=== PATIENT | female | born 1990 | race Caucasian/White ===

== ENCOUNTER 2024-04-04 13:01 | Emergency (ER) | payer OTHER ==
[2024-04-04 13:59] LABS: Absolute Basophils 0.1 K/uL (0-0.5); Absolute Eosinophils 0.1 K/uL (0-0.5); Absolute Lymphocytes (CBC) 1.4 K/uL (0.7-4.9); Absolute Monocytes 0.6 K/uL (0.1-1.3); Absolute Neutrophil 3.5 K/uL (1.8-8.0); Basophils % 1.1 % (0-1.3); Hemoglobin 12.3 g/dL (12.0-15.0); MCH 29.3 pg (27.0-35.0); MCHC 33.2 g/dL (32.0-36.0); MCV 88.2 fL (80-100); MPV 9.2 fL (7.6-11.3); Monocytes % 10.9 % (3.3-12.3); Platelets 234 thou/uL (152-406); RBC Red Blood Cell Count 4.19 M/uL (3.86-4.86); Red Cell Distribution Width 12.4 % (12.1-15.2)
[2024-04-04 14:09] LABS: Specific Gravity 1.005 (1.005-1.030); Sqamous Epithelial None Seen /HPF (None Seen); Urine Bacteria None Seen /HPF (<20); Urine Bilirubin NEGATIVE (Negative); Urine Blood 2+ (Negative); Urine Clarity Clear (Clear); Urine Color Colorless (Yellow); Urine Culture Reflex Order NOT NEEDED; Urine Glucose NEGATIVE (Negative); Urine Ketones NEGATIVE (Negative); Urine Microscopic Reflex YN ORDER UMIC; Urine Nitrite NEGATIVE (Negative); Urine Protein NEGATIVE (Negative); Urine RBC <5 /HPF (None Seen); Urine Urobilinogen Normal (Normal); Urine WBC None Seen /HPF (<5); Urine pH 6.5 (5.0-7.0)
[2024-04-04 14:16] LABS: Albumin 3.8 g/dL (3.4-5.0); Albumin/Globulin Ratio 1.1 (1.1-1.8); Anion Gap 1.2 mEq/L (5.0-15.0); Bilirubin Total 0.5 mg/dL (0.2-1.0); Globulin 3.4 g/dL (2.3-3.5); Potassium 4.2 mEq/L (3.5-5.1); Protein, Total 7.2 g/dL (6.4-8.2)
--- NOTE | 2024-04-04 14:26 | RAD REPORT ---
EXAM DESCRIPTION: CTAngio Aorta For Dissection - 04/04/2024 2:08 pm CLINICAL HISTORY: ABD PAIN COMPARISON: No comparisons TECHNIQUE: CTA of the chest, abdomen, and pelvis was performed. All CT scans are performed using dose optimization technique as appropriate and may include automated exposure control or mA/KV adjustment according to patient size. FINDINGS: Thorax: Chest Wall: No abnormal mass. Bilateral breast prostheses . Lungs: No acute abnormality. Pleura: No effusions or pneumothorax. Gely/Mediastinum: No lymphadenopathy. Aorta/Pulmonary Arteries: Unremarkable Heart: Normal size. Abdomen/Pelvis: Liver: No acute abnormality or suspicious lesions. Biliary: No biliary ductal dilatation. Stomach: No significant focal abnormality. Duodenum: No significant focal abnormality. Pancreas: No significant abnormality. Spleen: No significant abnormality. Adrenal: No suspicious lesions. Kidney/ureter: No hydronephrosis. No renal calculi. Retroperitoneum: No retroperitoneal adenopathy. Vascular: No aneurysm. Bowel: No significant focal abnormality. Peritoneum: No ascites or free air. Bladder: Grossly unremarkable. Reproductive: No adnexal masses. Bones: No acute fracture. Other: n/a IMPRESSION: No acute findings within the chest, abdomen, or pelvis. No thoracic aortic dissection, a neurysm, or pulmonary embolus identified .
--- NOTE | 2024-04-04 15:50 | EDPHYS ---
Physician Documentation [facility] Name: Blane Hernandez Age: 34 yrs Sex: Female : 1990 Arrival Date: 04/04/2024 Time: 13:01 Bed 19 Private MD: ED Physician Valeriano Salas HPI: 04/04 13:46 This 34 yrs old Female presents to ER via Ambulatory with complaints of Vaginal sb4 Bleeding, Abdominal pain. 13:46 Patient states that she had a laparoscopic hysterectomy done by Dr. Yap about 1 sb4 month ago for treatment of endometriosis. She states that since then, she has had intermittent pain in her left upper quadrant, under one of her laparoscopic incision sites. Additionally, she has had intermittent vaginal bleeding, most recently restarted last night with bright red blood. She has had a follow up appointment with Dr. Yap who obtained a chest xray that was negative and additionally scheduled a CT abdomen with contrast later this week. Historical: - Allergies: 13:25 PENICILLINS; db - Home Meds: 13:25 levothyroxine oral [Active]; db - PMHx: 13:25 Hypothyroidism; db - PSHx: 13:25 HYSTERECTOMY; db - Immunization history:: Adult Immunizations unknown. - Infectious Disease History:: Denies. - Social history:: Smoking status: Patient denies any tobacco usage or history of. ROS: 13:46 Positive for vaginal bleeding, sb4 13:46 Constitutional: Negative for fever, chills, and weight loss, 13:46 Abdomen/GI: Positive for abdominal pain, 13:46 All other systems are negative, Exam: 13:46 Constitutional: This is a well developed, well nourished patient who is awake, alert, sb4 and in no acute distress. Head/Face: Normocephalic, atraumatic. Eyes: Extra-ocular motions intact. Periorbital areas with no swelling, redness, or edema. ENT: Mucous membranes moist. Cardiovascular: Regular rate and rhythm with a normal S1 and S2. Respiratory: Lungs have equal breath sounds bilaterally, clear to auscultation and percussion. No rales, rhonchi or wheezes noted. No increased work of breathing, no retractions or nasal flaring. Skin: Warm, dry with normal turgor. Normal color with no rashes, no lesions, and no evidence of cellulitis. 13:46 Abdomen/GI: Inspection: scar(s), are noted in the left upper quadrant, right lower quadrant and left lower quadrant, laparoscopic incision sites, well healed, Bowel sounds: normal, Palpation: soft, moderate abdominal tenderness, in the left upper quadrant, Vital Signs: 13:22 BP 125 / 90; Pulse 83; Resp 16; Temp 98.7; Pulse Ox 99% on R/A; Weight 68.04 kg; Height db 5 ft. 8 in. ; Pain 5/10; 14:34 BP 127 / 84; Pulse 80; Resp 17; Pulse Ox 99% on R/A; rs5 15:50 BP 134 / 79; Pulse 77; Resp 17; Pulse Ox 98% on R/A; rs5 13:22 Body Mass Index 22.81 (68.04 kg, 172.72 cm) db 13:22 Pain Scale: Adult db MDM: 13:11 Patient medically screened. 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 I additionally sb4 texted her from my personal cell phone, awaiting call back. Later, I called Dr. Yap's after hour office, no answer, left a voicemail. 15:48 Data reviewed: vital signs, nurses notes, lab test result(s), radiologic studies, I sb4 have discussed the patient's presentation/case with the attending Emergency Department Physician; and as a result, I will discharge patient. Management of patient was discussed with the following: Quick Service Technician: Dr. Yap, recommends continued pelvic rest. Counseling: I had a detailed discussion with the patient and/or guardian regarding the historical points, exam findings, and any diagnostic results supporting the discharge/admit diagnosis, lab results, radiology results, to return to the emergency department if symptoms worsen or persist or if there are any questions or concerns that arise at home. 04/04 13:42 Order name: CBC with Diff; Complete Time: 14:25 sb4 04/04 13:42 Order name: CMP; Complete Time: 14:25 sb4 04/04 13:42 Order name: Lipase; Complete Time: 14:25 sb4 04/04 13:42 Order name: Urinalysis w/ reflexes; Complete Time: 14:11 sb4 04/04 13:52 Order name: Angio Aorta For Dissection; Complete Time: 14:27 EDMS 04/04 13:42 Order name: IV Saline Lock; Complete Time: 13:55 sb4 04/04 13:42 Order name: Labs collected and sent; Complete Time: 13:55 sb4 Administered Medications: No medications were administered Disposition Summary: 04/04/24 15:49 Discharge Ordered Notes: Location: Home sb4 Problem: new sb4 Symptoms: are unchanged sb4 Condition: Stable sb4 Diagnosis - laproscopic incision site pain sb4 - Vaginal bleeding s/p hysterectomy sb4 Followup: sb4 - With: Emergency Department - When: As needed - Reason: Worsening of condition Discharge Instructions: - Discharge Summary Sheet sb4 Forms: - Patient Portal Instructions sb4 - Leadership Thank You Letter sb4 Prescriptions: - Prednisone 20 mg Oral Tablet - take 2 tablets ORAL route once daily for 5 days; 10 tablet; Refills: 0, Product sb4 Selection Permitted Signatures: Dispatcher [employer] Vera Chapman RN RN Vika Painting PA-C PAKendy sb4 Corrections: (The following items were deleted from the chart) 13:52 13:43 Abdomen Angio+CT.RAD.BRZ ordered. EDMS EDMS 13:52 13:43 Pelvis Angio+CT.RAD.BRZ ordered. EDMS EDMS 13:52 13:43 Chest Angio+CT.RAD.BRZ ordered. EDMS EDMS
--- NOTE | 2024-04-04 15:50 | ER ---
Nurse's Notes [facility] Name: Blane Hernandez Age: 34 yrs Sex: Female : 1990 Arrival Date: 04/04/2024 Time: 13:01 Bed 19 Private MD: Diagnosis: laproscopic incision site pain;Vaginal bleeding s/p hysterectomy Presentation: 04/04 13:22 Chief complaint: Patient states: STATES HAS LEFT UPPER ABD PAIN ABOVE INCISION RANDALL AND db VAGINAL BLEEDING AFTER HAVING A HYSTERECTOMY ON January. STATES BLEEDING STOPPED AND THEN BLEEDING STARTED BACK UP LAST NIGHT WITH INCREASED UPPER LEFT ABD PAIN. Coronavirus screen: Client denies travel out of the [place] in the last 14 days. At this time, the client does not indicate any symptoms associated with coronavirus-19. Ebola Screen: Patient negative for fever greater than or equal to 101.5 degrees Fahrenheit, and additional compatible Ebola Virus Disease symptoms Patient denies exposure to infectious person. Patient denies travel to an Ebola-affected area in the 21 days before illness onset. No symptoms or risks identified at this time. Initial Sepsis Screen: Does the patient meet any 2 criteria? No. Patient's initial sepsis screen is negative. Does the patient have a suspected source of infection? No. Patient's initial sepsis screen is negative. Risk Assessment: Do you want to hurt yourself or someone else? Patient reports no desire to harm self or others. Onset of symptoms was April 03, 2024. 13:22 Method Of Arrival: Ambulatory db 13:22 Acuity: ELLY 3 db Triage Assessment: 13:25 General: Appears in no apparent distress. comfortable, Behavior is calm, cooperative. db Pain: Complains of pain in abdomen and pelvis. Neuro: Level of Consciousness is awake, alert, obeys commands, Oriented to person, place, time, situation. Respiratory: Airway is patent Respiratory effort is even, unlabored, Respiratory pattern is regular, symmetrical. GI: Abdomen is flat, non-distended, Reports upper abdominal pain. : Reports vaginal bleeding that is moderate flow. Historical: - Allergies: 13:25 PENICILLINS; db - Home Meds: 13:25 levothyroxine oral [Active]; db - PMHx: 13:25 Hypothyroidism; db - PSHx: 13:25 HYSTERECTOMY; db - Immunization history:: Adult Immunizations unknown. - Infectious Disease History:: Denies. - Social history:: Smoking status: Patient denies any tobacco usage or history of. Screenin:30 [facility] ED Fall Risk Assessment (Adult) History of falling in the last 3 months, rs5 including since admission No falls in past 3 months (0 pts) Confusion or Disorientation No (0 pts) Intoxicated or Sedated No (0 pts) Impaired Gait No (0 pts) Mobility Assist Device Used No (0 pt) Altered Elimination No (0 pt) Score/Fall Risk Level 0 - 2 = Low Risk Oriented to surroundings, Maintained a safe environment. 13:30 Abuse screen: Denies threats or abuse. Nutritional screening: No deficits noted. rs5 Tuberculosis screening: No symptoms or risk factors identified. Assessment: 13:30 General: Appears in no apparent distress. uncomfortable, Behavior is calm, cooperative. rs5 Pain: Complains of pain in abdomen Pain currently is 4 out of 10 on a pain scale. Quality of pain is described as aching, Is continuous. Neuro: Level of Consciousness is awake, alert, obeys commands, Oriented to person, place, time, situation. Cardiovascular: Patient's skin is warm and dry. Respiratory: Airway is patent Respiratory effort is even, unlabored, Respiratory pattern is regular, symmetrical. GI: Abdomen is round non-distended, 2 small surgical incision noted to left upper abdomen, site clean, no redness or signs of infection noted. : Reports vaginal bleeding that is. EENT: No signs and/or symptoms were reported regarding the EENT system. Derm: Skin is intact, Skin is pink, warm \T\ dry. Musculoskeletal: Range of motion: intact in all extremities. 14:34 Reassessment: Patient and/or family updated on plan of care and expected duration. Pain rs5 level reassessed. Patient is alert, oriented x 3, equal unlabored respirations, skin warm/dry/pink. Patient denies pain at this time. Patient states feeling better. Patient states symptoms have improved. 15:24 Reassessment: Patient and/or family updated on plan of care and expected duration. Pain rs5 level reassessed. Patient is alert, oriented x 3, equal unlabored respirations, skin warm/dry/pink. Patient denies pain at this time. Patient states feeling better. Vital Signs: 13:22 BP 125 / 90; Pulse 83; Resp 16; Temp 98.7; Pulse Ox 99% on R/A; Weight 68.04 kg; Height db 5 ft. 8 in. ; Pain 5/10; 14:34 BP 127 / 84; Pulse 80; Resp 17; Pulse Ox 99% on R/A; rs5 15:50 BP 134 / 79; Pulse 77; Resp 17; Pulse Ox 98% on R/A; rs5 13:22 Body Mass Index 22.81 (68.04 kg, 172.72 cm) db 13:22 Pain Scale: Adult db ED Course: 13:04 Patient arrived in ED. ra3 13:06 Vika Shetty PA-C is PHCP. sb4 13:06 Naveed Bray MD is Attending Physician. sb4 13:25 Triage completed. db 13:28 Arm band placed on Patient placed in an exam room. db 13:35 Patient has correct armband on for positive identification. Placed in gown. Bed in low rs5 position. Call light in reach. Side rails up X2. 13:35 No provider procedures requiring assistance completed. rs5 13:40 Marcial Ward, RN is Primary Nurse. rs5 14:10 Angio Aorta For Dissection In Process Unspecified. EDMS 14:37 Valeriano Salas MD is Attending Physician. sb4 15:57 IV discontinued, intact, bleeding controlled, No redness/swelling at site. Pressure rs5 dressing applied. Administered Medications: No medications were administered Medication: 14:34 VIS not applicable for this client. rs5 Outcome: 15:49 Discharge ordered by MD. sb4 15:57 Discharged to home ambulatory, rs5 15:57 Condition: stable rs5 15:57 Discharge instructions given to patient, family, Instructed on discharge instructions, follow up and referral plans. medication usage, Demonstrated understanding of instructions, follow-up care, medications, Prescriptions given X 1, 15:59 Patient left the ED. rs5 Signatures: Dispatcher [employer] EDMS Vera Bolton RN RN Vika Painting PA-C PA-C sb4 Marcial Ward, RN RN rs5 Nilda Jean ra3 Corrections: (The following items were deleted from the chart) 16:49 15:25 BP 134 / 79; Pulse 77bpm; Resp 17bpm; Pulse Ox 98% RA; rs5 rs5
[2024-04-04 16:04] VITALS: TEMP 98.7; O2SAT 99
[2024-04-04 16:05] VITALS: BP 127/84
== END 2024-04-04 15:59 | disposition home or self-care (01) ==
LOC: ER 13:01
DX: G89.18 Other acute postprocedural pain (principal); N99.820 Postprocedural hemorrhage of a genitourinary system organ or structure following a genitourinary system procedure; Z90.710 Acquired absence of both cervix and uterus
CPT/HCPCS: 99283

== ENCOUNTER 2024-04-10 11:35 | Day surgery (SDC) | payer OTHER ==
[2024-04-10] MEDS ORDERED: Levofloxacin 750mg IV 750 MG/150 ML BAG IV ONE (12:06)
--- NOTE | 2024-04-10 12:09 | ER ---
Nurse's Notes [facility] Name: Blane Hernandez Age: 34 yrs Sex: Female : 1990 Arrival Date: 04/10/2024 Time: 11:35 Bed 8 Private MD: Diagnosis: Abnormal uterine and vaginal bleeding, unspecified Presentation: 04/10 11:42 Chief complaint: Patient states: had a hysterectomy six weeks ago and has had heavy tm6 bleeding and clotting ever since. My surgeon is meeting me up here. This is my third trip to the ER for this problem. Ebola Screen: Patient negative for fever greater than or equal to 101.5 degrees Fahrenheit, and additional compatible Ebola Virus Disease symptoms Patient denies exposure to infectious person. Patient denies travel to an Ebola-affected area in the 21 days before illness onset. No symptoms or risks identified at this time. Initial Sepsis Screen: Does the patient meet any 2 criteria? No. Patient's initial sepsis screen is negative. Does the patient have a suspected source of infection? No. Patient's initial sepsis screen is negative. Risk Assessment: Do you want to hurt yourself or someone else? Patient reports no desire to harm self or others. Onset of symptoms was February 28, 2024. 11:42 Method Of Arrival: Ambulatory tm6 11:42 Acuity: ELLY 3 tm6 12:56 Coronavirus screen: Client denies travel out of the [place] in the last 14 days. At this db time, the client does not indicate any symptoms associated with coronavirus-19. Triage Assessment: 11:42 General: Appears in no apparent distress. Behavior is calm, cooperative. Pain: Denies tm6 pain. EENT: No signs and/or symptoms were reported regarding the EENT system. Neuro: Level of Consciousness is awake, alert, obeys commands, Oriented to person, place, time, situation. Cardiovascular: Patient's skin is warm and dry. Respiratory: Airway is patent Respiratory effort is even, unlabored, Respiratory pattern is regular, symmetrical. GI: No signs and/or symptoms were reported involving the gastrointestinal system. Abdomen is flat, non-distended. : Reports vaginal bleeding that is bright red, with clots, heavy flow since 6 weeks ago. Derm: No signs and/or symptoms reported regarding the dermatologic system. Musculoskeletal: No signs and/or symptoms reported regarding the musculoskeletal system. 11:44 Pain: Complains of pain in suprapubic area Pain currently is 3 out of 10 on a pain tm6 scale. Quality of pain is described as crampy. 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 - Infectious Disease History:: Denies. - Social history:: Smoking status: Patient denies any tobacco usage or history of. Patient/guardian denies using alcohol. Screenin:52 [facility] ED Fall Risk Assessment (Adult) History of falling in the last 3 months, ph including since admission No falls in past 3 months (0 pts) Confusion or Disorientation No (0 pts) Intoxicated or Sedated No (0 pts) Impaired Gait No (0 pts) Mobility Assist Device Used No (0 pt) Altered Elimination No (0 pt) Score/Fall Risk Level 0 - 2 = Low Risk Oriented to surroundings, Maintained a safe environment, Hourly rounding (assess needs \T\ fall precautionary measures) done. Abuse screen: Denies threats or abuse. Denies injuries from another. Nutritional screening: No deficits noted. Tuberculosis screening: No symptoms or risk factors identified. Assessment: 12:08 Reassessment: Patient appears in no apparent distress at this time. Patient and/or db family updated on plan of care and expected duration. Pain level reassessed. Patient is alert, oriented x 3, equal unlabored respirations, skin warm/dry/pink. General: Appears in no apparent distress. comfortable, Behavior is calm, cooperative. Respiratory: Airway is patent Respiratory effort is even, unlabored, Respiratory pattern is regular, symmetrical. GI: Abdomen is flat, non-distended. 12:55 Reassessment: Patient appears in no apparent distress at this time. Patient and/or db family updated on plan of care and expected duration. Pain level reassessed. Patient is alert, oriented x 3, equal unlabored respirations, skin warm/dry/pink. PT PICKED UP BY RN FOR OR. FAMILY AND BELONGINGS WENT WITH PT. Neuro: Level of Consciousness is awake, alert, obeys commands, Oriented to person, place, time, situation. : Reports vaginal bleeding that is. Vital Signs: 11:44 BP 125 / 85; Pulse 82; Pulse Ox 100% on R/A; Weight 68.04 kg; Height 5 ft. 8 in. ; Pain tm6 3/10; 11:47 Temp 98.4(O); tm6 12:30 BP 114 / 83; Pulse 58; Resp 18; Pulse Ox 100% ; db 11:44 Body Mass Index 22.81 (68.04 kg, 172.72 cm) tm6 11:44 Pain Scale: Adult tm6 ED Course: 11:37 Patient arrived in ED. ra3 11:38 Nury Naidu FNP-C [facility]. kb 11:38 Naveed Bray MD is Attending Physician. kb 11:43 Triage completed. tm6 11:45 Arm band placed on right wrist. tm6 11:53 Patient has correct armband on for positive identification. Bed in low position. Call ph light in reach. Side rails up X 1. Pulse ox on. NIBP on. Door closed. Noise minimized. 11:55 Tamiko Martínez, RN is Primary Nurse. ph 12:04 No provider procedures requiring assistance completed. Initial lab(s) drawn, by me, db sent to lab. Inserted saline lock: 20 gauge in right antecubital area, using aseptic technique. Blood collected. Flushed with 10 mL NS. 12:09 Yasmin Yap MD is Hospitalizing Provider. kb 12:55 Provided Education on: TO OR. db 12:55 Patient admitted, IV remains in place. db Administered Medications: 12:15 Drug: levofloxacin IVPB 750 mg 150 ml IVPB once over 90 mins Volume: 150 ml; Route: db IVPB; Infused Over: 90 mins; Site: right antecubital; 12:56 Follow up: IV Status: Infusion continued upon admission db Medication: 11:53 VIS not applicable for this client. ph Outcome: 12:09 Decision to Hospitalize by Provider. kb 12:55 Admitted to OR accompanied by nurse, via wheelchair, with chart, Report called to db BEDSIDE REPORT GIVEN 12:55 Condition: stable 12:55 Instructed on the need for admit, 12:56 Patient left the ED. db Signatures: Nury Naidu FNP-C HYGIENE TEACHER-Ckb Tamiko Martínez, RN RN ph Vera Bolton, RN RN db Anusha Wang RN RN tm6 Nilda Jean
--- NOTE | 2024-04-10 12:09 | EDPHYS ---
Physician Documentation [facility] Name: Blane Hernandez Age: 34 yrs Sex: Female : 1990 Arrival Date: 04/10/2024 Time: 11:35 Bed 8 Private MD: ED Physician Naveed Bray HPI: 04/10 12:09 This 34 yrs old Female presents to ER via Ambulatory with complaints of Post Sx:bleed. kb 12:09 Pt is a 34 year old female who presents for vaginal bleeding that has been ongoing kb since hysterectomy 6 weeks ago. States she has had multiple exams, been here 3 times but no cause has been found. Pt was told to come to the ER today so Dr Yap could take her back to the OR for further evaluation. . 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 - Infectious Disease History:: Denies. - Social history:: Smoking status: Patient denies any tobacco usage or history of. Patient/guardian denies using alcohol. ROS: 12:02 Constitutional: As per HPI kb Exam: 12:02 Constitutional: This is a well developed, well nourished patient who is awake, alert, kb and in no acute distress. Head/Face: Normocephalic, atraumatic. ENT: Moist Mucous membranes Cardiovascular: Regular rate Respiratory: Respirations even and unlabored. No increased work of breathing. Talking in full sentences Abdomen/GI: Soft, non-tender. No distention Skin: Warm, dry with normal turgor. Normal color. MS/ Extremity: Pulses equal, no cyanosis. Neurovascular intact. Full, normal range of motion. Neuro: Awake and alert, GCS 15, oriented to person, place, time, and situation. Moves all extremities. Normal gait. Vital Signs: 11:44 BP 125 / 85; Pulse 82; Pulse Ox 100% on R/A; Weight 68.04 kg; Height 5 ft. 8 in. ; Pain tm6 3/10; 11:47 Temp 98.4(O); tm6 12:30 BP 114 / 83; Pulse 58; Resp 18; Pulse Ox 100% ; db 11:44 Body Mass Index 22.81 (68.04 kg, 172.72 cm) tm6 11:44 Pain Scale: Adult tm6 MDM: 11:38 Patient medically screened. kb 12:08 Differential diagnosis: post op bleeding, infection. Data reviewed: vital signs, nurses kb notes. Consideration of Admission/Observation Patient was admitted/placed on observation. Escalation of care including admission/observation considered. Management of patient was discussed with the following: Md Psychiatry: Dr Yap will take pt to OR shortly. Historians other than the Patient: Spouse/Significant Other: spouse. Counseling: I had a detailed discussion with the patient and/or guardian regarding the historical points, exam findings, and any diagnostic results supporting the discharge/admit diagnosis, the need for further work-up and treatment in the hospital. 04/10 11:55 Order name: CBC with Diff; Complete Time: 12:17 kb 04/10 11:55 Order name: Basic Metabolic Panel; Complete Time: 12:30 kb 04/10 11:55 Order name: IV Start; Complete Time: 12:07 kb Administered Medications: 12:15 Drug: levofloxacin IVPB 750 mg 150 ml IVPB once over 90 mins Volume: 150 ml; Route: db IVPB; Infused Over: 90 mins; Site: right antecubital; 12:56 Follow up: IV Status: Infusion continued upon admission db Disposition: 13:41 Co-signature as Attending Physician, Naveed Bray MD I reviewed the patient's care rt provided by the Advanced Practice Provider and agree with the diagnosis and treatment plan. Disposition Summary: 04/10/24 12:09 Hospitalization Ordered Notes: Hospitalization Status: Observation kb Provider: Yasmin Yap Location: Operating Room kb Condition: Stable kb Problem: new kb Symptoms: are unchanged kb Bed/Room Type: Standard kb Room Assignment: kb Diagnosis - Abnormal uterine and vaginal bleeding, unspecified kb Forms: - Medication Reconciliation Form kb - SBAR form kb - Leadership Thank You Letter kb Signatures: Dispatcher [employer] Nury Gil FNP-C FNP-Vera Newby RN RN Naveed Cruz MD MD rt Kathleen, Tawney, RN RN tm6
[2024-04-10 12:12] LABS: Absolute Eosinophils 0.1 K/uL (0-0.5); Absolute Lymphocytes (CBC) 1.4 K/uL (0.7-4.9); Absolute Monocytes 0.5 K/uL (0.1-1.3); Absolute Neutrophil 2.8 K/uL (1.8-8.0); Basophils % 0.9 % (0-1.3); Eosinophils % 1.9 % (0-4.4); Hematocrit 35.5 % (36.0-45.0); Hemoglobin 12.1 g/dL (12.0-15.0); Lymphocytes % 29.2 % (15.3-44.8); MCH 29.9 pg (27.0-35.0); MPV 9.6 fL (7.6-11.3); Monocytes % 10.5 % (3.3-12.3); Neutrophils % 57.5 % (41.7-73.7); Platelets 230 thou/uL (152-406); RBC Red Blood Cell Count 4.04 M/uL (3.86-4.86); Red Cell Distribution Width 12.5 % (12.1-15.2)
[2024-04-10 12:25] LABS: Anion Gap 9.5 mEq/L (5.0-15.0); Potassium 4.5 mEq/L (3.5-5.1)
[2024-04-10] MEDS ORDERED: LIDOCAINE HCL/EPINEPHRINE 20 ML MDV ONE (12:42)
[2024-04-10] MEDS ORDERED: Ringers Lactate 1,000 ML IV ONE (12:57)
[2024-04-10] MEDS ORDERED: propofoL 200 MG/20 ML VIAL IV ONE (13:14)
[2024-04-10] MEDS ORDERED: MIDAZOLAM HCL 2 MG/2 ML INJ ONE (13:15)
[2024-04-10] MEDS ORDERED: FENTANYL CITR 100 MCG/2 ML ONE (13:15)
[2024-04-10] MEDS ORDERED: SILVER NITRATE 1 APPL TOP ONE (13:18)
[2024-04-10] MEDS ORDERED: KETOROLAC 30 MG/ML INJ ONE (14:36)
[2024-04-10] MEDS ORDERED: MEPERIDINE HCL 25 MG/ML SYR ONE (14:45)
[2024-04-10 15:24] VITALS: O2SAT 98
[2024-04-10 15:53] VITALS: BP 112/74; TEMP 97.8
--- NOTE | 2024-04-10 18:18 | OP ---
Date of Procedure: 04/10/2024 Surgeon: Yasmin Yap MD Machine Rough Rounder: No stonecutter assistant. Preoperative Diagnosis: Vaginal cuff bleeding and patient is postop 5 weeks from a robotic hysterect kory. Postoperative Diagnosis: Vaginal cuff bleeding and patient is postop 5 weeks from a robotic hysterec maegan plus superficial cuff separation. Procedures Performed: Exam under anesthesia, vaginal cuff revision, and re-suturing. Anesthesia: General endotracheal. Specimens: No specimens. Complications: No complications. Implants: No implants. Estimated Blood Loss: 25. Findings: Superficial separation of the cuff with deeper fascia that is intact and the separation wa s encompassing the entire vaginal cuff. Fluid: 1000. Urine Catheterized: 400. Condition: Stable. Indications: The patient is a 34-year-old, 5 week postop from a robotic total laparoscopic hysterect kory, bilateral salpingectomy, started reporting vaginal bleeding after 3 weeks postop, which was ligh t on examination in the office. There was a slight separation superficially on the left end of the c uff. She was given strict instructions for pelvic rest as the patient had increased her activity sli ghtly, although she was mostly compliant by history. She was re-examined 1 week later and no significant change. However, there were episodes of signific ant bleeding and clots that the patient has been reporting and she has been conservatively observed t o see if this resolved spontaneously, but in the last 36 hours, there were episodes of spotting, but there were large clots and intermittently episodes of complete resolution of bleeding. So there was suspicion of vaginal cuff separation or a bleeder at the granulation tissue was suspected and so she was brought into the ER and consented in the preoperative area, taken back to the OR for the revision . Description Of Procedure: After the patient was taken back to the OR and she was placed in supine fa shion on the operating table, general anesthesia was given. She received a dose of Levaquin in the E R. She was then placed in a dorsal lithotomy position. Lower abdomen, medial thighs, vulva, vagina, and perineum were prepped and draped in a sterile fashion. Speculum was placed to expose the vaginal cu ff, anteriorly a Ryan, and a Vang in the posterior aspect. It was clear that the superficial layer was . The deeper tissues on examination with the ring forceps had no evidence of fascial d ehiscence. The bleeding was mostly coming from the right half of the incision. The angles were inta ct. After full assessment was performed, plan was to re-suture the superficial vaginal epithelium and hea lthy tissue. There was no evidence of any edema or swelling or infection, and mostly improperly heal ed edges that were rolled in. So, slight revision was performed by abrading the edges gently with th e tip of a hemostat as well as pickups. Then irrigation and suction was performed. Then, I went on to place a [id number] buried 2-0 PDS suture in the center. This was used as an anchor for retra ction and 4 sutures were placed with 0 Vicryl on a CT1 needle starting at the immediately lateral pos ition from the midline and then the angles, sutures were placed. Once all 4 sutures were placed, the y were all tied down. The reinforcing suture was placed in the midline with the 0 Vicryl and tied do wn. The tails were trimmed. There was excellent apposition, complete resolution of bleeding, and no tension. Wound was again irrigated and suctioned. The patient was catheterized with a red rubber c atheter and 400 mL was drained. The counts were then done and were correct. She was recovered from anesthesia and taken to PACU in stable condition. She got 30 mg of Toradol intraop and she will be d ischarged home today after she is able to tolerate diet, and ambulate and her pain is under good cont rol. She will continue Levaquin 500 daily for 14 days and we will make sure that we see her back in 2 weeks in the office. Call with any problems in the meanwhile and full hysterectomy instructions to be followed until recovery 2-4 weeks later. EMMA/SUZI Voice ID: [id number] Report ID: [id number]
--- NOTE | 2024-04-10 18:32 | HP ---
Date of Admission: 04/10/2024 This patient came into the ER. The patient is a 34-year-old, 5 week postop from a robotic total lapa roscopic hysterectomy. Chief Complaint: Vaginal bleeding, intermittent with heavy clots for the past 2 weeks, worse in the last 1 week and the bleeding that is heavy, less than 24 hours with resolution followed by ongoing sp otting, and mostly denies any significant pelvic pain, lower urinary tract symptoms, or bowel symptom s. Left upper quadrant pain has been complained intermittently. Denies any shortness of breath. Oc casional palpitations in the past and was documented to have a heart rate that is significantly highe r than 130. No chest pain or orthopnea. No nausea, vomiting, diarrhea, fever, or chills. Denies an y abnormal discharge with sexual intercourse. The patient is on bedrest for the last week and has be en compliant mostly. Review of Systems: As above included with the HPI. Past Medical History: Hypothyroidism and anxiety. Medications: She is on levothyroxine and some anxiety medication. Past Surgical History: Robotic total laparoscopic hysterectomy, bilateral salpingectomy 5 weeks ago. Social History: No tobacco, alcohol, or drugs. Allergies: TO PENICILLIN. Physical Examination: Vital Signs: 98.4, 82, 125/85, and weight of 150, 100% sats on room air. General: In no acute distress, significantly anxious. No pallor. Head and Neck: Normal. Chest: Unremarkable. Heart: Regular in rate and rhythm. No murmurs. Lungs: Clear and equal bilateral breath sounds. Abdomen: Soft, nondistended, minimally tender in the left upper quadrant abdominal wall. No rebound or mass or hernia. External Genitalia: Unremarkable. No pelvic exam internally was performed. The plan was to perform an exam under anesthesia. Rectal: Not done. Extremities: No edema or calf tenderness. Laboratory Data: Her white count was 4.8 with no left shift, and hemoglobin and hematocrit 12 and 35 , platelet count of 230. BMP was normal. The CT angiogram of the chest was negative for dissection and PE. The lower abdomen was visualized. There was no evidence of any mass or collection at the le rg of the vaginal cuff or any other hernia or free air. Chest x-ray, PA and lateral, was performed prior to that was negative. Conclusions: 1.Vaginal cuff bleeding, 5 weeks postop, suspected postop superficial separation of the vaginal cuff scar bleeding. Exam under anesthesia and the re-suturing with cauterization has been consented. Bl eeding, infection, vaginal cuff separation was all discussed with the patient and her and she was consented. Levaquin 750 mg preop and then we will do 500 mg daily for 14 days. 2.Left upper quadrant pain is unrelated, negative for PE workup. Plan is to just continue observati on likely related to the port sites. 3.Paroxysmal tachycardia. Has outpatient cardiac workup. At this time, the patient has not been ta chycardic. So, we will just observe her. Plan is to perform the procedure and if there is re-suturi ng done, no more risk for bleeding at this time, she will be discharged on the same day. JOS Voice ID: [id number]
== END 2024-04-10 16:24 | disposition home or self-care (01) ==
LOC: ER 11:35 → DS 16:08
PROVIDERS: ATTEND Obstetrics & Gynecology
PROC: 0UQG7ZZ Repair Vagina, Via Natural or Artificial Opening (ICD-10-PCS; principal; 2024-04-10 13:00)
DX: N93.8 Other specified abnormal uterine and vaginal bleeding (principal); R10.12 Left upper quadrant pain; F41.9 Anxiety disorder, unspecified; E03.9 Hypothyroidism, unspecified; I47.9 Paroxysmal tachycardia, unspecified; Z88.0 Allergy status to penicillin; Z98.890 Other specified postprocedural states; Z90.710 Acquired absence of both cervix and uterus
CPT/HCPCS: 57200; 85025; 80048; 36415; J2704; J2250; J3010; J2175; J7120; 96365; 99285